=== PATIENT | male | born 2000 | race Caucasian/White ===

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

== ENCOUNTER 2022-07-12 22:59 | Emergency (ER) | payer MEDICAID, SELFPAY ==
[2022-07-12 23:00] VITALS: BP 111/72; PULSE 96; RESP 20; TEMP 37.4; O2SAT 96; BMI 18.5
--- NOTE | 2022-07-13 00:05 | EDS_ITS ---
HPI History of Present Illness Chief Complaint: Fever Informant: patient and parent Onset/Context/Timing Onset: Days (2 days) Current Severity: Mild Maximum Severity: Moderate Narrative Narrative: Patient presents secondary to fever for the past 48 hours. Temperature has been up to 104. He has been using Tylenol and did take a dose of ibuprofen tonight at 10:15 PM. Patient complains of a mild headache. Mother states he has had some mild congestion. Cough or shortness of breath. No urinary symptoms. No rash or lesions. PFSH PFS Medical History Environmental allergies IBS (irritable bowel syndrome) Home Medications NK 05/26/22 [History Last Taken Unknown] Allergy/AdvReac Type Severity Reaction Status Date / Time Penicillins Allergy Severe swelling Verified 07/12/22 23:00 cantaloupe Allergy Itchy Verified 07/12/22 23:00 throat carrot Allergy Itchy Verified 07/12/22 23:00 throat cucumber Allergy Itchy Verified 07/12/22 23:00 throat peas Allergy Itchy Verified 07/12/22 23:00 throat watermelon Allergy Itchy Verified 07/12/22 23:00 throat Family History Grandfather Heart disease Grandmother CVA (cerebral vascular accident) Other Arthritis COPD (chronic obstructive pulmonary disease) Surgical History [place] teeth extracted Social History household members: family housing: house Smoking Status: Never smoker alcohol intake: never substance use type: does not use what type of physical activity do you participate in: other details: ultimate frisbee, hiking frequency: 3-4 times per week do you feel safe at home: Yes ROS ROS ED Constitutional Constitutional ED: Reports chills and fever(s) Eyes Eyes: Denies change in vision or discharge from eye(s) ENT ENT ED: Reports sore throat and other Details: Mild congestion ; Denies discharge from eye(s) or rhinorrhea Cardiovascular Cardiovascular: Denies chest pain or palpitations Respiratory/Chest Respiratory/Chest: Denies cough or dyspnea Gastrointestinal Gastrointestinal: Denies abdominal pain, diarrhea, nausea or vomiting Genitourinary Genitourinary ED: Denies difficulty urinating or dysuria Musculoskeletal Musculoskeletal: Denies back pain or extremity pain Integumentary Denies Abrasions or rash Neurologic Neurologic: Reports headache(s); Denies weakness Psychiatric Psychiatric: Denies anxiety or depression Allergic/Immunologic Allergic/Immunologic ED: Denies lip swelling or urticaria EXAM Physical Exam Const Vital Signs: 07/12/22 23:00 07/13/22 00:40 Temperature 99.3 F H Temperature Source Oral Pulse Rate 96 Respiratory Rate 20 H Respiratory Pattern Normal Blood Pressure 111/72 Blood Pressure Mean 85 Pulse Ox 96 Oxygen Delivery Method Room Air Positive well nourished and well developed General Appearance ED: well developed HEENT Reports normocephalic and head/scalp atraumatic Eyes PERRL and EOMs intact bilaterally Neck supple Neck Narrative: No meningismus Chest Wall inspection of chest normal and palpation of chest normal Resp normal respiratory effort and clear to auscultation bilaterally Cardio regular rate and regular rhythm GI normal to inspection, nondistended, normoactive bowel sounds Palpation: soft Back/Spine no CVA tenderness Extremity normal to inspection Neuro oriented x3 and no sensory deficits noted Sensorium / Orientation: alert Motor Exam: strength 5/5 throughout Psych mental status grossly normal Skin no rashes or lesions noted MDM MDM MDM Narrative Medical decision making narrative: Oral temperature at the time of my exam is 98.5. COVID and influenza swab obtained along with portable chest x-ray. Lab Data Attestation: I reviewed the patient's lab results. Treatment and Re-Evaluation Narrative: COVID influenza swabs are negative. Portable chest x-ray per my interpretation reveals no infiltrate. Test results discussed with patient and family at bedside. He will continue supportive care. Discharge Plan Triage Chief Complaint: Fever ED Provider: Roxi Rincon Dx/Rx/DC Orders Clinical Impression: Fever, Viral syndrome Instructions: ED FUO Adult, ED Fever Control (Adult), ED Viral Syndrome (Adult) Prescriptions: No Action NK Primary Care Provider: Gallito Bolivar Referrals: Gallito Bolivar MD [Primary Care Provider] - 3-5 Days if not improving Disposition Disposition: Home, Self Care
--- NOTE | 2022-07-13 00:45 | RAD_ITS ---
INDICATION: fever EXAMINATION/TECHNIQUE: X-RAY - XR Chest 1 View: 2 image COMPARISON: None. FINDINGS: LINES/DEVICES: None. LUNGS: No consolidation, edema or effusion. No pneumothorax. MEDIASTINUM AND CARDIOVASCULAR STRUCTURES: Cardiac silhouette not enlarged. BONES AND SOFT TISSUES: Unremarkable. RAD/Chest 1 View (Portable) IMPRESSION: No radiographic evidence of acute cardiopulmonary disease. Electronically Signed: Klaus Shabazz MD at 2:23 EDT ,
== END 2022-07-13 01:54 | disposition home or self-care (01) ==
PROVIDERS: Emergency Provider Emergency Medicine; PCP Family Medicine; Visit Provider Emergency Medicine
DX: B34.9 Viral infection, unspecified (principal); R50.9 Fever, unspecified; R51.9 Headache, unspecified; R09.81 Nasal congestion; K58.9 Irritable bowel syndrome, unspecified; J02.9 Acute pharyngitis, unspecified
CPT/HCPCS: 71045; 87428; 99282